=== PATIENT | male | born 1950 | race Caucasian/White ===

== ENCOUNTER → 2016-11-05 | Outpatient (CLI) | payer OTHER ==
[~2016-11-05] MED LIST: AZOR 10 MG-40 M1 TAB PO; GLUCOPHAGE500 MG/TAB PO; LASIX 20MG TABL20 MG PO; LEVAQUIN 5500 MG/TA1 PO; LIPITOR 40MG TA40 MG PO; TOPROL XL 25MG25 MG PO; TOPROL XL200 MG PO; XARELTO20 MG PO; ZYLOPRIM 300MG300 MG PO
== END ==
LOC: SUN.DIA 10:08
DX: E11.40 Type 2 diabetes mellitus with diabetic neuropathy, unspecified (principal); E78.5 Hyperlipidemia, unspecified; I10 Essential (primary) hypertension; E66.9 Obesity, unspecified; Z68.43 Body mass index [BMI] 50.0-59.9, adult; Z71.3 Dietary counseling and surveillance; Z87.891 Personal history of nicotine dependence
CPT/HCPCS: G0108

== ENCOUNTER → 2016-11-18 | Outpatient (CLI) | payer MEDICARE, OTHER ==
[~2016-11-18] MED LIST changes: -AZOR 10 MG-40 M1 TAB PO; +AZOR 5 MG-20 MG1 TAB PO; -GLUCOPHAGE500 MG/TAB PO; -LASIX 20MG TABL20 MG PO; +LIPITOR 10MG10 MG PO; -LIPITOR 40MG TA40 MG PO; -TOPROL XL200 MG PO; -XARELTO20 MG PO; +ZYLOPRIM 100MG100 MG PO; -ZYLOPRIM 300MG300 MG PO
== END ==
LOC: SUN.DIA 09:28
DX: E11.40 Type 2 diabetes mellitus with diabetic neuropathy, unspecified (principal); I10 Essential (primary) hypertension; E78.5 Hyperlipidemia, unspecified; E66.9 Obesity, unspecified; Z68.42 Body mass index [BMI] 45.0-49.9, adult; F17.210 Nicotine dependence, cigarettes, uncomplicated; Z71.3 Dietary counseling and surveillance; Z79.84 Long term (current) use of oral hypoglycemic drugs
CPT/HCPCS: G0108

== ENCOUNTER 2016-12-11 12:56 | Day surgery (SDC) | payer MEDICARE, OTHER ==
[2016-12-11] VITALS (11 sets, daily range): BP systolic 103–143; BP diastolic 62–96; PULSE 54–100; TEMP 98.5
[~2016-12-11] VITALS: Ht 180.3 cm; Wt 159.1 kg
[~2016-12-11 12:56] MED LIST changes: +AZOR 10 MG-40 M1 TAB PO; -AZOR 5 MG-20 MG1 TAB PO; -LIPITOR 10MG10 MG PO; +LIPITOR 40MG TA40 MG PO; -ZYLOPRIM 100MG100 MG PO; +ZYLOPRIM 300MG300 MG PO
[2016-12-11] MEDS ORDERED: GLUCOPHAGE500 MG/TAB PO (13:28)
[2016-12-11] MEDS ORDERED: XARELTO20 MG PO (13:35)
[2016-12-11] MEDS ORDERED: TOPROL XL200 MG PO (13:38)
[2016-12-11] MEDS ORDERED: LASIX 20MG TABL20 MG PO (13:40)
[2016-12-11 14:01] LABS: INR 1.3 (0.8-3.0); POTASSIUM 4.3 mmol/L (3.4-5.0); PROTHROMBIN TIME 15.1 SECONDS (9.7-12.8)
[2016-12-11 14:34] LABS: THYROID STIMULATING HORMONE 1.79 uIU/mL (0.465-4.680)
== END 2016-12-11 17:00 | disposition home or self-care (01) ==
LOC: COL.CAR 12:56
PROVIDERS: Internal Medicine Interventional Cardiology
DX: I48.1 Persistent atrial fibrillation (principal); I25.10 Atherosclerotic heart disease of native coronary artery without angina pectoris; I10 Essential (primary) hypertension; G47.33 Obstructive sleep apnea (adult) (pediatric); E78.5 Hyperlipidemia, unspecified; G62.9 Polyneuropathy, unspecified; I49.5 Sick sinus syndrome; I87.2 Venous insufficiency (chronic) (peripheral); Z79.01 Long term (current) use of anticoagulants; Z87.891 Personal history of nicotine dependence
CPT/HCPCS: J2250; J3010

== ENCOUNTER → 2016-12-29 | Outpatient (CLI) | payer MEDICARE, OTHER ==
[~2016-12-29] MED LIST changes: +GLUCOPHAGE500 MG/TAB PO; +LASIX 20MG TABL20 MG PO; +TOPROL XL200 MG PO; +XARELTO20 MG PO
== END ==
LOC: SUN.DIA 09:32
DX: E11.40 Type 2 diabetes mellitus with diabetic neuropathy, unspecified (principal); E78.5 Hyperlipidemia, unspecified; I10 Essential (primary) hypertension; E66.9 Obesity, unspecified; Z68.42 Body mass index [BMI] 45.0-49.9, adult; Z71.3 Dietary counseling and surveillance; Z87.891 Personal history of nicotine dependence

== ENCOUNTER → 2017-02-01 | Outpatient (CLI) | payer MEDICARE, OTHER | LOC: SUN.DIA 08:35 | DX: E11.40 Type 2 diabetes mellitus with diabetic neuropathy, unspecified (principal); E78.5 Hyperlipidemia, unspecified; I10 Essential (primary) hypertension; E66.9 Obesity, unspecified; Z68.43 Body mass index [BMI] 50.0-59.9, adult; Z71.3 Dietary counseling and surveillance; Z87.891 Personal history of nicotine dependence | CPT/HCPCS: G0108 ==

== ENCOUNTER → 2017-06-08 | Outpatient (CLI) | payer MEDICARE, OTHER | LOC: SUN.DIA 05-06 14:01 | DX: E11.40 Type 2 diabetes mellitus with diabetic neuropathy, unspecified (principal); E78.5 Hyperlipidemia, unspecified; I10 Essential (primary) hypertension; E66.9 Obesity, unspecified; Z68.42 Body mass index [BMI] 45.0-49.9, adult; Z71.3 Dietary counseling and surveillance; Z87.891 Personal history of nicotine dependence | CPT/HCPCS: G0108 ==

== ENCOUNTER → 2017-07-13 | Outpatient (CLI) | payer MEDICARE, OTHER | LOC: SUN.DIA 08:43 | DX: E11.40 Type 2 diabetes mellitus with diabetic neuropathy, unspecified (principal); E78.5 Hyperlipidemia, unspecified; I10 Essential (primary) hypertension; E66.9 Obesity, unspecified; Z68.42 Body mass index [BMI] 45.0-49.9, adult; Z71.3 Dietary counseling and surveillance; Z87.891 Personal history of nicotine dependence | CPT/HCPCS: G0108 ==

== ENCOUNTER → 2017-09-13 | Outpatient (CLI) | payer MEDICARE, OTHER | LOC: SUN.DIA 10:10 | DX: E11.40 Type 2 diabetes mellitus with diabetic neuropathy, unspecified (principal); E78.5 Hyperlipidemia, unspecified; I10 Essential (primary) hypertension; E66.9 Obesity, unspecified; Z68.42 Body mass index [BMI] 45.0-49.9, adult; Z71.3 Dietary counseling and surveillance; Z87.891 Personal history of nicotine dependence | CPT/HCPCS: G0108 ==

== ENCOUNTER 2017-12-17 10:13 | Day surgery (SDC) | payer MEDICARE, OTHER ==
[~2017-12-17] VITALS: Ht 180.3 cm; Wt 154.9 kg
[2017-12-17 10:36] VITALS: BP 120/71; PULSE 65; TEMP 97.6
[2017-12-17] MEDS ORDERED: GLUCOPHAGE1000 MG PO (10:43)
[2017-12-17] MEDS ORDERED: DOXYCYCLINE 10100 MG PO (11:03)
[2017-12-17 13:20] VITALS: BP 127/71; PULSE 74; TEMP 97.7
[2017-12-17 13:35] VITALS: BP 114/87; PULSE 76
[2017-12-17 13:50] VITALS: BP 127/75; PULSE 71
[2017-12-17 15:19] VITALS: BP 117/88; PULSE 88
== END 2017-12-17 14:04 | disposition home or self-care (01) ==
LOC: SDCO 10:13
DX: Z12.11 Encounter for screening for malignant neoplasm of colon (principal); D12.0 Benign neoplasm of cecum; K57.30 Diverticulosis of large intestine without perforation or abscess without bleeding; R19.7 Diarrhea, unspecified; I10 Essential (primary) hypertension; E78.00 Pure hypercholesterolemia, unspecified; E11.9 Type 2 diabetes mellitus without complications; I48.91 Unspecified atrial fibrillation; G47.33 Obstructive sleep apnea (adult) (pediatric); E66.01 Morbid (severe) obesity due to excess calories; Z68.43 Body mass index [BMI] 50.0-59.9, adult; Z88.0 Allergy status to penicillin; Z79.01 Long term (current) use of anticoagulants; Z79.84 Long term (current) use of oral hypoglycemic drugs; Z98.52 Vasectomy status; Z86.010 Personal history of colon polyps; Z87.891 Personal history of nicotine dependence
CPT/HCPCS: J2704; J7030

== ENCOUNTER → 2017-12-23 | Outpatient (CLI) | payer MEDICARE, OTHER ==
[~2017-12-23] MED LIST changes: +DOXYCYCLINE 10100 MG PO; +GLUCOPHAGE1000 MG PO
== END ==
LOC: COL.RAD 10:01
DX: M16.11 Unilateral primary osteoarthritis, right hip (principal)

== ENCOUNTER → 2017-12-29 | Outpatient (REF) | LOC: ZLAB.WCH 18:09 | DX: Z01.89 Encounter for other specified special examinations (principal) ==

== ENCOUNTER → 2018-01-17 | Outpatient (CLI) | payer MEDICARE, OTHER | LOC: SUN.DIA 12-14 10:50 | DX: E11.40 Type 2 diabetes mellitus with diabetic neuropathy, unspecified (principal); E78.5 Hyperlipidemia, unspecified; I10 Essential (primary) hypertension; E66.9 Obesity, unspecified; F17.210 Nicotine dependence, cigarettes, uncomplicated | CPT/HCPCS: G0109 ==

== ENCOUNTER → 2018-03-11 | Outpatient (CLI) | payer MEDICARE, OTHER | LOC: COL.RAD 07:46 | DX: M16.11 Unilateral primary osteoarthritis, right hip (principal) | CPT/HCPCS: J3301; Q9967 ==

== ENCOUNTER → 2018-08-09 | Outpatient (CLI) | payer MEDICARE, OTHER | LOC: SUN.DIA 05-16 13:53 | DX: E11.40 Type 2 diabetes mellitus with diabetic neuropathy, unspecified (principal); E78.5 Hyperlipidemia, unspecified; I10 Essential (primary) hypertension; E66.9 Obesity, unspecified | CPT/HCPCS: G0108 ==

== ENCOUNTER 2021-05-02 08:35 | Day surgery (SDC) | payer MEDICARE, OTHER ==
[~2021-05-02] VITALS: Ht 180.3 cm; Wt 160.3 kg
[2021-05-02] VITALS (10 sets, daily range): BP systolic 138–160; BP diastolic 79–94; PULSE 54–668; TEMP 98.4
[2021-05-02 09:11] LABS: HEMATOCRIT 47.7 % (42.0-52.0); HEMOGLOBIN 16.6 g/dl (13.5-18.0); MEAN CELL VOLUME 94 fl (80.0-100.0); MEAN CORPUSCULAR HEMOGLOBIN 33 pg (27-31); MEAN CORPUSCULAR HGB CONC 35 g/dl (33.0-37.0); PLATELET COUNT 223 K/mm3 (130-400); RED BLOOD COUNT 5.09 M/mm3 (4.20-5.60); REDCELL DISTRIBUTION WIDTH-CV 13.3 % (11.5-14.5)
[2021-05-02] MEDS ORDERED: ALDACTONE 25MG25 M1 PO (09:23)
[2021-05-02 10:07] LABS: CREATININE, serum 1.09 mg/dL (0.72-1.25); POTASSIUM 4.3 mmol/L (3.5-4.5)
[2021-05-02 10:13] LABS: INR 1.1 (0.8-3.0); PROTHROMBIN TIME 12.4 SECONDS (9.7-12.8)
[2021-05-02 10:15] LABS: PARTIAL THROMBOPLASTIN TIME 35.1 SECONDS (26.0-37.0)
--- NOTE | 2021-05-02 10:36 | NUR ---
SEE MERGE FOR ALL MEDICATION ADMINISTRATION TIMES/DOSAGES AND INTRA/POST PROCEDURE ASSESSMENTS. ANESTHESIA AT BEDSIDE FOR FAMILIA PROCEDURE. SEE ANESTHESIA RECORD FOR MEDS/ASSESSMENT DURING FAMILIA.
--- NOTE | 2021-05-02 11:25 | NUR ---
Report from Dianne SAINZ. Transferred from costume maker by bed. Alert and oriented, denies pain and needs at this time. bedside. Right Tband with 12 cc air CD&I, good pulses and cap refill < 3 secs noted. VSS
[2021-05-02] MEDS ORDERED: FARXIGA5 PO (11:52)
--- NOTE | 2021-05-02 14:10 | NUR ---
12 cc air released from right Tband and dressing applied. INT discontinued intact
--- NOTE | 2021-05-02 14:35 | NUR ---
Discharge instructions given. Transferred to private car by valery
== END 2021-05-02 14:35 | disposition home or self-care (01) ==
LOC: COL.CAR 08:35
PROVIDERS: Internal Medicine Cardiovascular Disease
DX: I42.8 Other cardiomyopathies (principal); I35.0 Nonrheumatic aortic (valve) stenosis; I10 Essential (primary) hypertension; I48.91 Unspecified atrial fibrillation; E78.5 Hyperlipidemia, unspecified; E11.9 Type 2 diabetes mellitus without complications; M19.90 Unspecified osteoarthritis, unspecified site; G47.33 Obstructive sleep apnea (adult) (pediatric); Z79.899 Other long term (current) drug therapy; Z79.84 Long term (current) use of oral hypoglycemic drugs; Z87.891 Personal history of nicotine dependence; Z99.89 Dependence on other enabling machines and devices
CPT/HCPCS: J1644; J2250; J2704; J3010; Q9967

== ENCOUNTER → 2023-07-20 | Outpatient (CLI) | payer MEDICARE ==
[~2023-07-20] MED LIST changes: +ALDACTONE 25MG25 M1 PO; +FARXIGA5 PO
== END ==
LOC: COL.RAD 07:00
DX: Z12.2 Encounter for screening for malignant neoplasm of respiratory organs (principal); F17.201 Nicotine dependence, unspecified, in remission

== ENCOUNTER 2023-09-03 09:39 | Day surgery (SDC) | payer MEDICARE ==
[~2023-09-03] VITALS: Ht 180.3 cm; Wt 157.8 kg
[~2023-09-03 09:39] MED LIST changes: +Ondansetron 4 MG/2 ML VIAL IV PRN
[2023-09-03] MEDS ORDERED: LR 1,000 ML IV ONE (10:15)
[2023-09-03] MEDS ORDERED: Glycopyrrolate 0.2 MG/ML 1 ML VIAL ONE (10:17)
[2023-09-03] MEDS ORDERED: Lidocaine PF 2% (20 MG/ML) 5 ML VIAL ONE (10:17)
[2023-09-03 11:15] VITALS: BP 113/65; PULSE 84; TEMP 97.4
--- NOTE | 2023-09-03 11:15 | NUR ---
The patient arrived back to [facility] from the endoscopy suite. The patient ambulated from the cart to the recliner in his room with the stand by assistance of two nurses. The patient agrees to try some sprite. Post procedure vital signs were started at this time. The patient's is at bedside. Denies any further needs.
--- NOTE | 2023-09-03 11:30 | NUR ---
The patient appeared to tolerate the sprite well and denies wanting anything further at this time. Vital signs appear stable. The patient's remains at his bedside. Denies any further needs.
[2023-09-03 11:31] VITALS: BP 118/65; PULSE 68
[2023-09-03 11:45] VITALS: BP 109/67; PULSE 76
--- NOTE | 2023-09-03 11:50 | NUR ---
Dr. Caldwell is in talking to the patient and his regarding the findings of the procedure. Discharge instructions were reviewed with the patient and his and they both verbalized understanding at this time. The patient's IV to his right hand was removed and a pressure dressing was applied to the site. The nurse instructed the patient to get dressed and notify the staff when he is ready to be escorted out.
--- NOTE | 2023-09-03 12:00 | NUR ---
The patient was escorted out via wheelchair to a private vehicle by Roberto Carlos. The patient's belongings and discharge paperwork were sent with him. The patient's is present to drive him home.
[2023-09-03 12:21] VITALS: BP 148/84; PULSE 86; TEMP 97.6
[2023-09-03] MEDS ORDERED: ELIQUIS 5MG PO (12:30)
[2023-09-03] MEDS ORDERED: MOBIC15 MG PO (12:31)
== END 2023-09-03 12:00 | disposition home or self-care (01) ==
LOC: SDCO 09:39
DX: Z12.11 Encounter for screening for malignant neoplasm of colon (principal); D12.5 Benign neoplasm of sigmoid colon; K57.30 Diverticulosis of large intestine without perforation or abscess without bleeding; E66.01 Morbid (severe) obesity due to excess calories; Z79.01 Long term (current) use of anticoagulants
CPT/HCPCS: J2704; J7120